=== PATIENT | male | born 1990 | race Caucasian/White ===

== ENCOUNTER 2016-06-01 21:33 | Emergency (ER) | payer MEDICAID ==
[2016-06-01 21:40] VITALS: RESP 18
--- NOTE | 2016-06-01 21:42 | EDPHY ---
H & P Stated Complaint: RLQ Pain - Personal History Current Tetanus/Diphtheria Vaccine: Unsure Current Tetanus Diphtheria and Acellular Pertussis (TDAP): Unsure - Medical/Surgical History Hx Asthma: No Hx Chronic Respiratory Disease: No Hx Diabetes: No Hx Cardiac Disease: No Hx Renal Disease: No Hx Cirrhosis: No Hx Alcoholism: No Hx HIV/AIDS: No Hx Splenectomy or Spleen Trauma: No Other PMH: L KNEE SURGERY - Social History Smoking Status: Current every day smoker Time Seen by Provider: 06/01/16 21:42 Constitutional: Initial Vital Signs Temperature (C) 36.6 C 06/01/16 21:39 Heart Rate 69 06/01/16 21:39 Respiratory Rate 18 06/01/16 21:39 Blood Pressure 121/75 H 06/01/16 21:39 O2 Sat (%) 97 06/01/16 21:39 O2 Delivery Mode Room Air Allergies/Adverse Reactions: No Known Allergies Allergy (Unverified 03/02/16 15:57) Home Medications: Medication Instructions Recorded NK [No Known Home Meds] 03/02/16 Medical Decision Making - Diagnostics Imaging: CT scan of abdomen and pelvis with IV contrast: There is a mild ileus. Some dilation of the stomach with gas and food stuff in it, this is then seen through the small intestine . There is gas and stool in the colon. There is no evidence of mechanical obstruction or volvulus. No abscess. The appendix is well visualized and is normal. No other significant findings. Results were discussed with staff radiologist Dr. Willem Moses. (Rosa M Price) ED Course/Re-evaluation: CHIEF COMPLAINT: RLQ pain, vomiting, diarrhea. HISTORY OF PRESENT ILLNESS: The patient is a 25-year-old male who presents with RLQ abdominal pain, vomiting, and diarrhea for the past few days. The pain does not radiate. He denies fever, hematemesis, bloody stool, or other complaints. REVIEW OF SYSTEMS: A 10 point review of systems was performed and is negative with the exception of the elements mentioned in the history of present illness. PHYSICAL EXAM: HR, BP, O2 Sat, RR. Temp noted General Appearance: Alert, well hydrated, appropriate, and non-toxic appearing. Uncomfortable-appearing. Head: Atraumatic without scalp tenderness or obvious injury Eyes: Pupils equal, round, reactive to light and accommodation, EOMI, no trauma , no injection. Ears: Clear bilaterally, no perforation, normal landmarks Nose: Atraumatic, no rhinorrhea, clear. Throat: There is no erythema or exudates, no lesions, normal tonsils, mucus membranes moist. Neck: Supple, 2+ carotid upstroke, nontender, no lymphadenopathy. Respiratory: No retractions, no distress, no wheezes, and no accessory muscle use. Lungs are clear to auscultation bilaterally. Cardiovascular: Regular rate and rhythm, no murmurs, rubs, or gallops. Bilateral carotid, radial, dorsalis pedis, and posterior tibial pulses intact. Good capillary refill all extremities. Gastrointestinal: Abdomen is soft, non-distended, no masses, no rebound, no guarding, no peritoneal signs. RLQ tenderness. Musculoskeletal: Normal active ROM of all extremities, atraumatic. Neurological: Alert, appropriate, and interactive. The patient has normal DTRs and non-focal cranial nerves, motor, sensory, and cerebellar exam. Skin: No rashes, good turgor, no nodules on palpation. Past medical history:Denies. Past surgical history:Knee surgery. Family history:N/A. Social history:Here alone. DIAGNOSTICS/PROCEDURES/CRITICAL CARE TIME: Study: CT of the abdomen/pelvis. Indication: Pain, vomiting, diarrhea. Results: ____ The study was read by the radiologist, . I viewed the images myself on the PACS system. DIFFERENTIAL DIAGNOSIS: The differential diagnosis for the patient's abdominal pain included but was not limited to appendicitis, cholecystitis, hernias, testicular torsion, gastritis, and urinary tract infection. MEDICAL DECISION MAKIN-year-old male presents with a few days of RLQ abdominal pain, vomiting, and diarrhea. He has no fever or other complaints. On exam he is exquisitely tender in the RLQ. I have a high suspicion for appendicitis. Abdominal CT with IV contrast ordered. An IV was established and labs ordered. 1mg IV Dilaudid administered for pain along with 1L IV saline for hydration and 4mg IV Zofran for nausea. WBC negative. This patient will be turned over to Dr. Price at change of shift. Abdominal CT scan is pending. If the CT scan is unremarkable this patient can go home. (Jerry Wood) I took over care of this patient at 10:30 p.m.. This patient is awaiting a CT scan of his abdomen and pelvis to evaluate right lower quadrant pain. 11:00 p.m., patient re-evaluated. He is resting comfortably at this time. Repeat abdominal exam he is soft and nontender with active bowel sounds. His vital signs have been reviewed and are normal. He has been tolerating oral fluids. No vomiting. Results of his CT scan were discussed thoroughly with him. He feels comfortable being discharged. I discussed follow-up. Return to emergency department precautions were reviewed with him. All of his questions were answered. He was discharged in good condition. (Rosa M Price) - Data Points Laboratory Results: Laboratory Results 06/01/16 21:43 06/01/16 21:43 06/01/16 06/01/16 06/01/16 21:43 21:43 21:42 WBC 9.45 10^3/uL 10^3/uL (3.80-9.50) RBC 4.85 10^6/uL 10^6/uL (4.40-6.38) Hgb 15.4 g/dL g/dL (13.7-17.5) POC Hgb 16.0 gm/dL gm/dL (14.5-17.3) Hct 43.9 % % (40.0-51.0) POC Hct 47 % % (42.8-50.6) MCV 90.5 fL fL (81.5-99.8) MCH 31.8 pg pg (27.9-34.1) MCHC 35.1 g/dL g/dL (32.4-36.7) RDW 13.0 % % (11.5-15.2) Plt Count 229 10^3/uL 10^3/uL (150-400) MPV 9.1 fL fL (8.7-11.7) Neut % (Auto) 57.2 % % (39.3-74.2) Lymph % (Auto) 30.7 % % (15.0-45.0) Kemper % (Auto) 8.4 % % (4.5-13.0) Eos % (Auto) 3.1 % % (0.6-7.6) Baso % (Auto) 0.4 % % (0.3-1.7) Nucleat RBC Rel Count 0.0 % % (0.0-0.2) Absolute Neuts (auto) 5.41 10^3/uL 10^3/uL (1.70-6.50) Absolute Lymphs (auto) 2.90 10^3/uL 10^3/uL (1.00-3.00) Absolute Monos (auto) 0.79 10^3/uL 10^3/uL (0.30-0.80) Absolute Eos (auto) 0.29 10^3/uL 10^3/uL (0.03-0.40) Absolute Basos (auto) 0.04 10^3/uL 10^3/uL (0.02-0.10) Absolute Nucleated RBC 0.00 10^3/uL 10^3/uL (0-0.01) Immature Gran % 0.2 % % (0.0-1.1) Immature Gran # 0.02 10^3/uL 10^3/uL (0.00-0.10) POC Sodium 142 mEq/L mEq/L (134-144) Sodium 139 mEq/L mEq/L (134-144) POC Potassium 3.4 mEq/L mEq/L (3.3-5.0) Potassium 3.8 mEq/L mEq/L (3.5-5.2) POC Chloride 105 mEq/L mEq/L (96-108) Chloride 105 mEq/L mEq/L (97-110) Carbon Dioxide 19 mEq/l L mEq/l (22-31) Anion Gap 15 mEq/L mEq/L (8-16) POC BUN 16 mg/dL mg/dL (7-23) BUN 15 mg/dL mg/dL (7-23) Creatinine 0.9 mg/dL mg/dL (0.7-1.3) POC Creatinine 0.9 mg/dL mg/dL (0.8-1.5) Estimated GFR > 60 Glucose 108 mg/dL H mg/dL (70-100) POC Glucose 112 mg/dL H mg/dL (70-100) Calcium 9.8 mg/dL mg/dL (8.5-10.4) Total Bilirubin 0.5 mg/dL mg/dL (0.1-1.4) Conjugated Bilirubin 0.4 mg/dL mg/dL (0.0-0.5) Unconjugated Bilirubin 0.1 mg/dL mg/dL (0.0-1.1) AST 24 IU/L IU/L (17-59) ALT 31 IU/L IU/L (21-72) Alkaline Phosphatase 55 IU/L IU/L (38-126) Total Protein 7.2 g/dL g/dL (6.3-8.2) Albumin 4.5 g/dL g/dL (3.5-5.0) Lipase 70.0 IU/L IU/L (23-300) Medications Given: Discontinued Medications Hydromorphone HCl (Dilaudid) 1 mg IVP EDNOW ONE Stop: 06/01/16 21:46 Last Admin: 06/01/16 22:00 Dose: 1 mg Sodium Chloride (Ns) 1,000 mls @ 0 mls/hr IV ONCE ONE PRN Reason: Wide Open Stop: 06/01/16 21:44 Last Admin: 06/01/16 21:44 Dose: 1,000 mls Sodium Chloride (Ns) 1,000 mls @ 0 mls/hr IV ONCE ONE PRN Reason: Wide Open Stop: 06/01/16 21:46 Last Admin: 06/01/16 22:00 Dose: 1,000 mls Sodium Chloride (Ns) 1,000 mls @ 0 mls/hr IV ONCE ONE PRN Reason: Wide Open Stop: 06/01/16 21:46 Last Admin: 06/01/16 21:52 Dose: Not Given Ondansetron HCl (Zofran) 4 mg IVP EDNOW ONE Stop: 06/01/16 21:46 Last Admin: 06/01/16 22:00 Dose: 4 mg Point of Care Test Results: 06/01/16 21:42 POC Sodium 142 POC Potassium 3.4 POC Chloride 105 POC BUN 16 POC Creatinine 0.9 POC Glucose 112 H Departure - Departure Disposition: Home, Routine, Self-Care Clinical Impression: RLQ abdominal pain Condition: Good Instructions: Abdominal Pain (ED) Additional Instructions: Follow up with [facility] this week if symptoms are not improving. Return to the emergency department for any serious worsening of condition, such as worsening abdominal pain, vomiting, blood in your stool, fever or other serious concerns. Referrals: [facility],. [Clinic] - As per Instructions Report Scribed for: Jerry Wood Report Scribed by: Keegan Hood Date of Report: 06/01/16 Time of Report: 22:19
[2016-06-01] MEDS ORDERED: NS 1,000 ML IV ONE ×3 (21:43→21:45)
[2016-06-01] MEDS ORDERED: HYDROmorphONE/DILAUDID 1 MG/ML SYR IVP ONE (21:45)
[2016-06-01] MEDS ORDERED: ONDANSETRON 4 MG/2 ML VIAL IVP ONE (21:45)
[2016-06-01 22:06] LABS: % IMMATURE GRANULYOCYTES 0.2 % (0.0-1.1); ABSOLUTE IMMATURE GRANULOCYTES 0.02 10^3/uL (0.00-0.10); ADD DIFF? NO; ADD MORPH? NO; ADD SCAN? NO; ATYPICAL LYMPHOCYTE FLAG 50 (0-99); FRAGMENT RBC FLAG 0 (0-99); HEMATOCRIT 43.9 % (40.0-51.0); HEMOGLOBIN 15.4 g/dL (13.7-17.5); LEFT SHIFT FLG 0 (0-99); LIPEMIA HEMOLYSIS FLAG 90 (0-99); MEAN CELL HEMOGLOBIN 31.8 pg (27.9-34.1); MEAN CELL HEMOGLOBIN CONCENTR. 35.1 g/dL (32.4-36.7); MEAN CELL VOLUME 90.5 fL (81.5-99.8); MEAN PLATELET VOLUME 9.1 fL (8.7-11.7); PLATELET CLUMPS FLAG 0 (0-99); PLATELET COUNT 229 10^3/uL (150-400); RED BLOOD CELL COUNT 4.85 10^6/uL (4.40-6.38)
[2016-06-01] MEDS ORDERED: IOPAMIDOL (ISOVUE-300) 100 ML BTL IV ONE (22:08)
[2016-06-01 22:26] LABS: ALANINE AMINOTRANSFERASE 31 IU/L (21-72); ALBUMIN 4.5 g/dL (3.5-5.0); ALKALINE PHOSPHATASE 55 IU/L (38-126); ANION GAP 15 mEq/L (8-16); ASPARTATE AMINOTRANSFERASE 24 IU/L (17-59); BILIRUBIN,TOTAL 0.5 mg/dL (0.1-1.4); BILIRUBIN-CONJUGATED 0.4 mg/dL (0.0-0.5); BILIRUBIN-UNCONJUGATED 0.1 mg/dL (0.0-1.1); CALCIUM 9.8 mg/dL (8.5-10.4); CARBON DIOXIDE 19 mEq/l (22-31); CHLORIDE 105 mEq/L (97-110); CREATININE 0.9 mg/dL (0.7-1.3); GLOMERULAR FILTRATION RATE > 60; GLUCOSE 108 mg/dL (70-100); POTASSIUM 3.8 mEq/L (3.5-5.2); SODIUM 139 mEq/L (134-144); TOTAL PROTEIN 7.2 g/dL (6.3-8.2)
[2016-06-01 23:30] VITALS: BP 123/70; PULSE 71; TEMP 98.1; O2SAT 96
== END 2016-06-01 23:32 | disposition home or self-care (01) ==
LOC: EDUNIT#
DX: R10.31 Right lower quadrant pain (principal); F17.200 Nicotine dependence, unspecified, uncomplicated
CPT/HCPCS: 82947-QW; 96374; J1170; J2405; Q9967